=== PATIENT | female | born 1955 | race Caucasian/White ===

== ENCOUNTER 2021-09-07 09:53 | Emergency (ER) | payer MEDICARE, OTHER ==
[~2021-09-07] VITALS: Ht 149.9 cm; Wt 104.0 kg
[2021-09-07] MEDS ORDERED: JARD1TAB PO (10:24)
[2021-09-07] MEDS ORDERED: LANTINJ4 SQ (10:24)
[2021-09-07] MEDS ORDERED: SYNT125T PO (10:24)
[2021-09-07] MEDS ORDERED: OMEP-173 PO (10:24)
[2021-09-07] MEDS ORDERED: PROAAER10 INH (10:24)
[2021-09-07] MEDS ORDERED: BREO1INH3 INH (10:24)
[2021-09-07] MEDS ORDERED: THEO400T4 PO (10:24)
[2021-09-07] MEDS ORDERED: LISI2.5T9 PO (10:24)
[2021-09-07] MEDS ORDERED: MONT10TA97 PO (10:24)
[2021-09-07] MEDS ORDERED: ERGO500029 PO (10:24)
[2021-09-07] MEDS ORDERED: ZOLO100T PO (10:24)
[2021-09-07] MEDS ORDERED: ACETAMINOPHEN 500 MG TAB PO ONE (12:30)
[2021-09-07] MEDS ORDERED: BOOSTRIX/ADACEL VACCINE (DIPHTH/PERTUSS/ACELL/TETANUS) 0.5ML SYR IM ONE (12:35)
[2021-09-07 12:46] VITALS: BP 131/64
== END 2021-09-07 13:13 | disposition home or self-care (01) ==
LOC: M ED 09:53 → EDBD 09:53 → M ED 13:13
DX: S01.21XA Laceration without foreign body of nose, initial encounter (principal); S81.012A Laceration without foreign body, left knee, initial encounter; W01.0XXA Fall on same level from slipping, tripping and stumbling without subsequent striking against object, initial encounter; Y92.531 Health care provider office as the place of occurrence of the external cause; Y93.9 Activity, unspecified; Y99.9 Unspecified external cause status; E11.9 Type 2 diabetes mellitus without complications; E03.9 Hypothyroidism, unspecified; I67.82 Cerebral ischemia; Z79.899 Other long term (current) drug therapy; Z79.4 Long term (current) use of insulin; Z79.890 Hormone replacement therapy